=== PATIENT | male | born 1985 | race Two or more races ===

== ENCOUNTER 2024-04-07 16:57 | Emergency (ER) | payer MEDICAID, OTHER ==
[~2024-04-07] VITALS: Ht 180.3 cm; Wt 73.8 kg
[2024-04-07] MEDS ORDERED: BACIOIN15 TOP (22:07)
[2024-04-07] MEDS: TETANUS-DIPTH-ACEL PERTUSSIS 0.5ML SYR Tdap IM ONE (22:52)
[2024-04-07 23:00] VITALS: BP 109/72; PULSE 78; RESP 18; TEMP 98.8; O2SAT 96
== END 2024-04-07 23:23 | disposition home or self-care (01) ==
LOC: ER 16:57
DX: T23.211A Burn of second degree of right thumb (nail), initial encounter (principal); T23.251A Burn of second degree of right palm, initial encounter; T31.0 Burns involving less than 10% of body surface; T79.9XXA Unspecified early complication of trauma, initial encounter; X10.2XXA Contact with fats and cooking oils, initial encounter; Y93.89 Activity, other specified; Y92.89 Other specified places as the place of occurrence of the external cause; Y99.8 Other external cause status
CPT/HCPCS: 16000; 90471; 90715